=== PATIENT | male | born 1980 | race Asian ===

== ENCOUNTER 2023-10-11 09:49 | Emergency (ER) | payer BC ==
[~2023-10-11] VITALS: Ht 165.1 cm; Wt 86.2 kg
[2023-10-11 09:53] VITALS: BP_SYST 140; PULSE 71; RESP 16; TEMP 97.9; O2SAT 99
[2023-10-11] MEDS: ACETAMINOPHEN 500 MG TABLET PO ONE (10:36)
[2023-10-11] MEDS: KETOROLAC TROMETHAMINE 30 MG VIAL IVP ONE (10:37)
[2023-10-11 10:44] LABS: BASOPHILS # (AUTO) 0.1 K/uL (0.0-0.2); BASOPHILS % (AUTO) 0.6 % (0.0-2.0); EOSINOPHILS # (AUTO) 0.2 K/uL (0.0-0.4); EOSINOPHILS % (AUTO) 1.8 % (0.0-4.0); HEMOGLOBIN 14.4 g/dL (14.0-18.0); LYMPHOCYTES # (AUTO) 2.4 K/uL (1.0-5.5); LYMPHOCYTES % (AUTO) 24.4 % (20.5-51.5); MEAN CORPUSCULAR HEMOGLOBIN 30 pg (27-31); MEAN CORPUSCULAR HGB CONC 34 % (32-36); MEAN CORPUSCULAR VOLUME 88 fL (79.0-98.0); MONOCYTES # (AUTO) 0.8 K/uL (0.0-1.0); MONOCYTES % (AUTO) 8.2 % (1.7-9.3); NEUTROPHILS # (AUTO) 6.4 K/uL (1.8-7.7); PLATELET COUNT (AUTO) 263 K/uL (130-430); RED BLOOD CELL COUNT(AUTO) 4.81 MIL/uL (4.2-6.2); RED CELL DISTRIBUTION WIDTH 13.5 % (9.0-15.0); WHITE BLOOD COUNT (AUTO) 9.8 K/uL (4.8-10.8)
[2023-10-11 10:49] LABS: BILIRUBIN,URINE NEGATIVE (NEGATIVE); BLOOD, URINE 3+ (NEGATIVE); COLOR,URINE YELLOW (YELLOW); GLUCOSE,URINE NEGATIVE (NEGATIVE); KETONES,URINE NEGATIVE (NEGATIVE); LEUKOCYTE ESTERASE ,URINE NEGATIVE (NEGATIVE); NITRITE, URINE NEGATIVE (NEGATIVE); PROTEIN URINE NEGATIVE (NEGATIVE); UROBILINOGEN,URINE 0.2 (0.2-1.0)
[2023-10-11 10:51] LABS: CLARITY/URINE SLIGHTLY HAZY (CLEAR)
[2023-10-11 11:11] LABS: ALBUMIN 4.1 g/dL (3.4-4.8); BILIRUBIN,DIRECT 0.2 mg/dL (0.0-0.3); CREATININE 1.44 mg/dL (0.55-1.30); POTASSIUM 3.9 mmol/L (3.5-5.1); TOTAL BILIRUBIN 0.8 mg/dL (0.0-1.0); TOTAL PROTEIN, SERUM 7.8 g/dL (6.4-8.3)
[2023-10-11 11:23] LABS: BACTERIA,URINE FEW /HPF (None Seen); WBC,URINE 0-3 /HPF (0-3)
[2023-10-11] MEDS ORDERED: TAMS-11 PO (12:50)
[2023-10-11] MEDS ORDERED: HYDR-3917 PO (12:57)
[2023-10-11 13:30] VITALS: BP_SYST 142; PULSE 72; RESP 16; TEMP 97.9; O2SAT 98
== END 2023-10-11 13:30 | disposition home or self-care (01) ==
LOC: SED 09:49
DX: N20.2 Calculus of kidney with calculus of ureter (principal); R10.9 Unspecified abdominal pain; R11.0 Nausea
CPT/HCPCS: 99285; 74176; 96374; 80076; 80048; 81001; 83690; 85025; 36415; 81000; 81015; J1885